=== PATIENT | male | born 1950 | race Caucasian/White ===

== ENCOUNTER → 2016-12-01 | Outpatient (CLI) | payer OTHER, MEDICARE ==
[~2016-12-01] MED LIST: AMLODIPINE BESY10 MG PO; AZITHROMYCIN 2250 MG PO; DIGOXIN250 MCG PO; LASIX 40 MG TAB40 M2 PO; LISINOPRIL-HCT1 EACH PO; POTASSIUM20 PO; PRADAXA150 MG PO; PROBENECID-COL1 EACH PO; TOPROL XL100 MG PO; ceftin PO
--- NOTE | ~2016-12-01 | SLE ---
[facility] [address] [address] POLYSOMNOGRAPHY STUDY Name: DARIN MICHAELS Room #: REG [facility]#: [id number] Admission: 12/01/16 Attend Phys: Ernestine Gonzalez MD Discharge: Date of : 52 Report #: [id number] THIS REPORT FOR: //name// CC: Amadou Davila MD HISTORY: Prior study September 2016. Home study showed an apnea-hypopnea index of 65 events per hour, 42 of those events were central apneas. COMMENTS: CPAP TITRATION: Titrated between 5 and 14 cm water pressure. At 14 cm water pressure, the patient was seen for 53 minutes of which 25 minutes was in REM sleep. Central apnea 1, hypopnea 0, respiratory effort related arousal 2. Apnea hypopnea index 1.1 event per sleep hour, low sat of 91%. IMPRESSION: 1. History of obstructive sleep apnea/hypopnea, G47.33. 2. Central events noted. 3. CPAP improves the patient's apnea-hypopnea index, snoring and desaturation. The patient was not seen in supine REM sleep. PVCs noted. SUGGESTIONS: 1. In addition to specific therapy, the patient should be cautioned regarding driving or operating dangerous machinery unless fully alert. The patient will be cautioned on use of respiratory depressants. 2. Weight loss and TSH may be considered. 3. Oral appliance or appropriate surgery may be considered with appropriate followup. 4. An auto titrating CPAP between 10 and 16 cm water pressure is initially recommended. During our study, a [employer] Simplus full face large mask was used with heated humidity. 5. If signs and symptoms not improve with therapy, further evaluation is recommended. Please do not hesitate to contact me if I may be of further assistance. <ELECTRONICALLY SIGNED> By: Ernestine Gonzalez MD 12/08/16 2232 [id number] 13 Ernestine Gonzalez MD /nt
== END ==
LOC: SLEEPLAB 11:15
DX: G47.33 Obstructive sleep apnea (adult) (pediatric) (principal)

== ENCOUNTER → 2017-02-14 | Outpatient (CLI) | payer OTHER, MEDICARE | LOC: MRI 07:18 | DX: M48.06 Spinal stenosis, lumbar region (principal); M24.28 Disorder of ligament, vertebrae; M54.5 Low back pain ==

== ENCOUNTER 2017-03-23 07:04 | Inpatient (IN) | payer OTHER, MEDICARE ==
[~2017-03-23] VITALS: Ht 185.4 cm; Wt 115.8 kg
--- NOTE | ~2017-03-23 | EKG ---
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
--- NOTE | ~2017-03-23 | EKG ---
[address] [address] ELECTROCARDIOGRAM REPORT Name: SACHA MICHAELSDominic Ferreira Room #: 207-[facility] IN ..#: [id number] Admission: 03/24/17 Attend Phys: Geoffrey Cantu MD Discharge: 03/27/17 Date of : 52 Report #: [id number] THIS REPORT FOR: //name// [facility] Test Date: 2017-03-23 Test Time: 09:09:55 Pat Name: DARIN MICHAELS Department: Room: 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
--- NOTE | ~2017-03-23 | D ---
[facility] [place] [address] [place] [address] DISCHARGE SUMMARY Name: DARIN MICHAELS Room #: 207-P [facility] IN ..#: [id number] Admission: 03/24/17 Attend Phys: Geoffrey Cantu MD Discharge: 03/27/17 Date of : 52 Report #: [id number] THIS REPORT FOR: //name// CC: Amadou Cantu FINAL DIAGNOSES: 1. Congestive heart failure, mixed type. 2. Paroxysmal atrial fibrillation. 3. Mitral regurgitation. 4. Hypertension. 5. Sleep apnea. HOSPITAL COURSE: Please see the original H and P for full details. This is a 66-year-old gentleman with a history of AFib and diastolic heart failure, admitted electively for cardioversion. He was found to have atrial fibrillation with rapid ventricular rates and heart failure symptoms. He did undergo cardioversion. However, the echo revealed a change in the LV systolic function, moderate to severely depressed. It was decided to start the patient on amiodarone and IV diuresis. The rhythm has remained in sinus rhythm. His heart failure symptoms improved with IV diuresis, and he is stable for discharge. The patient is instructed to maintain a low-salt diet. FINAL DISPOSITION: He will continue Pradaxa 150 mg twice a day, Lasix 40 mg daily, and potassium. His new medications include Coreg 6.25 mg twice a day and lisinopril 5 mg daily. He is given a followup appointment with Dr. Cantu. <ELECTRONICALLY SIGNED> By: Edilberto Lima MD 03/28/17 0902 0930 1043 Edilberto Lima MD /nt
--- NOTE | ~2017-03-23 | 2DMMODE ---
[facility] [place] [address] 2 D/M-MODE ECHOCARDIOGRAM Name: DARIN MICHAELS Hanna Room #: 207-P [facility] IN ..#: [id number] Admission: 03/23/17 Attend Phys: Geoffrey Cantu Discharge: Date of : 52 Date of Service: 03/23/17 1159 Report #: [id number] THIS REPORT FOR: //name// APPROVED REPORT Study performed: 03/23/2017 09:24:59 EXAM: Comprehensive 2D, Doppler, and color-flow Echocardiogram Patient Location: Bedside Room #: 207 Blood Pressure: 142/108 mmHg HR: 64 bpm Rhythm: NSR w frequent PAC's Other Information Study Quality: Adequate Technically limited study due to limited mobility and patient on Bipap.. Indications Acute on chronic heart failure, Afib status post cardioversion today, short of breath, edema. Hx: Afib 2D Dimensions RVDd: 52.58 mm LVEF(%): 29.34 (>50%) IVSd: 13.41 (7-11mm) LVOT Diam: 27.09 (18-24mm) LVDd: 55.41 mm PWd: 11.70 (7-11mm) LVDs: 47.70 (25-40mm) Aortic Root: 39.62 mm Dean's LVEF: 29.34 % Volumes Left Atrial Volume (Systole) Single Plane 4CH: 95.14 mL Single Plane 2CH: 156.76 mL LA ESV Index: 54.00 mL/m2 Aortic Valve AoV Peak Papito.: 0.72 m/s AO Peak Gr.: 2.09 mmHg LVOT Max P.00 mmHg LVOT Max V: 0.50 m/s RENITA Vmax: 3.99 cm2 [facility] [place] [address] 2 D/M-MODE ECHOCARDIOGRAM Name: DARIN MICHAELS Hanna Room #: [address] [place] [address] IN ..#: [id number] Admission: 03/23/17 Attend Phys: Geoffrey Cantu Discharge: Date of : 52 Date of Service: 03/23/17 1159 Report #: [id number] Mitral Valve MV Decel. Time: 215.64 ms MV E Max Papito.: 0.69 m/s IVRT: 76.12 ms Pulmonary Valve PV Peak Papito.: 0.39 m/s PV Peak Gr.: 0.61 mmHg Tricuspid Valve TR Peak Papito.: 2.89 m/s RAP Estimate: 15.00 mmHg TR Peak Gr.: 33.37 mmHg RVSP: 48.00 mmHg Left Ventricle The left ventricle is normal size. Mild concentric left ventricular hypertrophy. Left ventricular systolic function is moderate to severely decreased. LVEF is 30-35%. This study is not technically sufficient to allow evaluation of the LV diastolic function due to arrhythmia. Right Ventricle Right ventricle is moderately dilated. Right ventricular systolic function is moderately reduced. Atria Left atrium is severely dilated. Flow was noted through the interatrial septum. Right atrium is severely dilated. Aortic Valve The Aortic valve is sclerotic. Trace aortic regurgitation. There is no aortic valvular stenosis. Mitral Valve The mitral valve is normal in structure. Moderate to severe mitral regurgitation Tricuspid Valve The tricuspid valve is normal in structure. There is moderate tricuspid regurgitation. The right atrial pressure is estimated at 15 mmHg. There is moderate pulmonary hypertension with an estimated PAP of 48mmHg. Pulmonic Valve The pulmonary valve is normal in structure. Trace pulmonic regurgitation. [facility] [address] [place] [address] 2 D/M-MODE ECHOCARDIOGRAM Name: DARIN MICHAELS Room #: 207-P [facility] IN ..#: [id number] Admission: 03/23/17 Attend Phys: Geoffrey Cantu Discharge: Date of : 52 Date of Service: 03/23/17 1159 Report #: [id number] Great Vessels Aortic root is dilated. Ascending aorta is not well visualized. IVC is dilated and collapses <50% with inspiration. Pericardium There is no pericardial effusion. <Conclusion> The left ventricle is normal size. Mild concentric left ventricular hypertrophy. Left ventricular systolic function is moderate to severely decreased. LVEF is 30-35%. Right ventricle is moderately dilated. Right ventricular systolic function is moderately reduced. Left atrium is severely dilated. Right atrium is severely dilated. Flow was noted through the interatrial septum. The Aortic valve is sclerotic. Trace aortic regurgitation. The mitral valve is normal in structure. Moderate to severe mitral regurgitation The tricuspid valve is normal in structure. There is moderate tricuspid regurgitation. The right atrial pressure is estimated at 15 mmHg. There is moderate pulmonary hypertension with an estimated PAP of 48mmHg. Trace pulmonic regurgitation. Aortic root is dilated. IVC is dilated and collapses <50% with inspiration. <ELECTRONICALLY SIGNED> By: Kayode Valiente MD 03/23/17 1159 1159 1159 Kayode Valiente MD /INF
--- NOTE | ~2017-03-23 | H ---
[facility] [place] [address] HISTORY AND PHYSICAL Name: DARIN MICHAELS Room #: 207-P [facility] M..#: [id number] Admission: 03/23/17 Attend Phys: Geoffrey Cantu MD Discharge: Date of : 52 Report #: [id number] THIS REPORT FOR: //name// CC: Amadou Cantu DATE OF SERVICE: 03/23/2017 REASON FOR ADMISSION: AFib with RVR, zjdsg-lf-nlyorrz diastolic heart failure. HISTORY OF PRESENT ILLNESS: The patient is a 66-year-old patient who I follow up for atrial fibrillation for approximately 1 year when he was diagnosed. He presented with AFib with RVR and diastolic heart failure. He underwent a cardioversion and since about a few weeks ago, the patient was doing very well. He then presented to my clinic on March 18 with increased shortness of breath, palpitations and lower extremity swelling. As such, I recommended that he coming in for cardioversion today. Prior to the cardioversion, the patient was complaining of worsening shortness of breath, some PND, orthopnea and worsening lower extremity swelling. His is in agreement that his respiratory status is worsened. He denies any chest pain or chest tightness. REVIEW OF SYSTEMS: GENERAL: No fevers, chills. HEENT: No blurred vision or sore throat. CARDIOVASCULAR: As above. PULMONARY: No productive cough. GASTROINTESTINAL: No nausea, vomiting. GENITOURINARY: No dysuria. MUSCULOSKELETAL: No myalgias, arthralgias. ENDOCRINE: No heat or cold intolerance. NEUROLOGIC: No headaches or focal weakness. PAST MEDICAL HISTORY: 1. Atrial fibrillation diagnosed in May 2016. 2. Diastolic heart failure secondary to atrial fibrillation. 3. Echocardiogram on 06/07/2016 demonstrating an EF of 45-50%, severely enlarged left atrium with no significant valvular abnormalities. 4. Hypertension. 5. Gout. 6. Obstructive sleep apnea. SOCIAL HISTORY: He is not a smoker. FAMILY HISTORY: Noncontributory. ALLERGIES: He has no known drug allergies. [facility] [address] [place] [address] HISTORY AND PHYSICAL Name: DARIN MICHAELS Room #: 207-P [facility]#: [id number] Admission: 03/23/17 Attend Phys: Geoffrey Cantu MD Discharge: Date of : 52 Report #: [id number] PRIOR SURGERIES: Include appendectomy, total knee replacement, thyroidectomy. PHYSICAL EXAMINATION: VITAL SIGNS: Today, temperature is 36.4, pulse 108, respiration 18, blood pressure 142/108 and oxygen sats are anywhere from 90-96%. GENERAL: He is a slightly dyspneic. HEENT: Oropharynx is clear. Sclerae anicteric. His neck was supple with no thyromegaly, carotid bruits. HEART: Irregularly irregular, tachycardic. No murmurs noted. He does have elevated jugular venous pressure with positive hepatojugular reflux. LUNGS: Clear bilaterally. ABDOMEN: Soft, nontender, nondistended with no hepatosplenomegaly. EXTREMITIES: There was 3+ edema on the right lower extremity and 2+ edema in the left lower extremity, which he reports he typically gets more swelling in the right leg. NEUROLOGIC: His cranial nerves 2-12 are intact. LABORATORY DATA: White count 10.2, hemoglobin 15.3, platelets are 182. His sodium 144, potassium 3.8, chloride 109, BUN 30, creatinine 1.4, glucose 140, total bili 1.3. HOME MEDICATIONS: Include: 1. Colchicine/probenecid. 2. Pradaxa 150 b.i.d. 3. Lasix 40 mg a day. 4. Toprol 100 mg a day. 5. Potassium chloride 20 mEq a day. ASSESSMENT: 1. Atrial fibrillation with rapid ventricular response. 2. Dedxo-ks-mfrjrqm diastolic heart failure. 3. Hypertension, uncontrolled. 4. Gout. PLAN: The patient is a 66-year-old with known AFib and diastolic heart failure, who presents with vcsbi-dx-mhqmhlp diastolic heart failure and AFib with RVR. I did proceed with a cardioversion with successful spiritism of sinus rhythm. I spoke with the patient and his prior to the procedure and recommended that we admit him to the hospital for IV diuresis. I did anticipate that he will be here for at least 3 days and while he is here, we will start him on sotalol [address] [address] HISTORY AND PHYSICAL Name: DARIN MICHAELS Room #: 207-P [facility] [place] Golden#: [id number] Admission: 03/23/17 Attend Phys: Geoffrey Cantu MD Discharge: Date of : 52 Report #: [id number] b.i.d. to prevent further episodes of atrial fibrillation. We will obtain an echocardiogram and some additional cardiac laboratories. By: 0850 1017 Geoffrey Cantu MD /nadia
--- NOTE | ~2017-03-23 | P ---
[facility] [place] [address] PROCEDURE REPORT Name: DARIN MICHAELS Room #: 207-P [facility] M.RJoann#: [id number] Admission: 03/23/17 Attend Phys: Geoffrey Cantu MD Discharge: Date of : 52 Report #: [id number] THIS REPORT FOR: //name// CC: Amadou Cantu PREOPERATIVE DIAGNOSIS: Atrial fibrillation. POSTOPERATIVE DIAGNOSIS: Atrial fibrillation and acute on chronic diastolic heart failure. The patient is a 66-year-old with recurrent AFib, here for cardioversion. He was prepped in standard fashion. He was n.p.o. prior to the procedure. He underwent informed consent. He was sedated by the anesthesiology service. Once sedated, he underwent a synchronized 200 joule shock with episcopalian of sinus rhythm. CONCLUSIONS: Successful DC cardioversion with episcopalian of sinus rhythm. PLAN: The patient appears to be in acute on chronic diastolic heart failure. We will admit for diuresis and optimization of his meds. By: 0856 1125 Geoffrey Cantu MD /nt
--- NOTE | ~2017-03-23 | EKG ---
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
[2017-03-23 07:26] VITALS: BP 142/108
[2017-03-23 07:34] LABS: HEMATOCRIT 46.1 % (42.0-52.0); HEMOGLOBIN 15.3 gm/dL (14.0-18.0); MCH 29.8 pg (26.0-34.0); MCHC 33.2 g/dL (28.0-37.0); MCV 89.6 fL (80.0-100.0); RBC 5.15 mil/uL (4.50-6.00); RDW 14.2 % (10.5-14.5); WBC 10.2 thou/uL (4.0-11.0)
[2017-03-23 07:44] LABS: CALCIUM 8.8 mg/dL (8.5-10.1); CREATININE 1.4 mg/dL (0.7-1.3); POTASSIUM 3.8 mmol/L (3.5-5.1)
[2017-03-23 07:49] LABS: ALBUMIN 3.5 g/dL (3.4-5.0); TOTAL BILIRUBIN 1.3 mg/dL (<0.1-1.0)
[2017-03-23 07:55] LABS: APTT 34.4 Seconds (24.5-32.8); INR 1.4; PROTIME 14.2 Seconds (9.3-11.4)
[2017-03-23 09:19] LABS: NT-PRO BRAIN NAT PEPTIDE 5777 pg/mL (<300); TROPONIN-I < 0.04 ng/mL (<0.04-0.07)
[2017-03-23 09:25] VITALS: BP 125/92
[2017-03-23 11:10] VITALS: BP 125/92
[2017-03-23 16:30] VITALS: BP 130/97
[2017-03-23 20:25] VITALS: BP 138/93
[2017-03-24 05:00] VITALS: BP 157/91
[2017-03-24 07:51] VITALS: BP 143/105
[2017-03-24 09:40] LABS: HEMATOCRIT 46.1 % (42.0-52.0); HEMOGLOBIN 15.4 gm/dL (14.0-18.0); MCH 29.9 pg (26.0-34.0); MCHC 33.4 g/dL (28.0-37.0); MCV 89.6 fL (80.0-100.0); RBC 5.15 mil/uL (4.50-6.00); RDW 14.3 % (10.5-14.5); WBC 8.9 thou/uL (4.0-11.0)
[2017-03-24 09:51] LABS: CALCIUM 8.8 mg/dL (8.5-10.1); CREATININE 1.4 mg/dL (0.7-1.3); POTASSIUM 3.4 mmol/L (3.5-5.1)
[2017-03-24 12:26] VITALS: BP 134/98
[2017-03-24 19:45] VITALS: BP 98/54
[2017-03-24 19:55] VITALS: BP 137/77
[2017-03-25] VITALS (7 sets, daily range): BP systolic 108–123; BP diastolic 62–78
[2017-03-25 09:44] LABS: CREATININE 1.4 mg/dL (0.7-1.3); POTASSIUM 3.6 mmol/L (3.5-5.1)
[2017-03-26 03:50] LABS: CALCIUM 8.6 mg/dL (8.5-10.1); CREATININE 1.3 mg/dL (0.7-1.3); POTASSIUM 3.4 mmol/L (3.5-5.1)
[2017-03-26 04:38] VITALS: BP 124/83
[2017-03-26 07:50] VITALS: BP 124/85
[2017-03-26 13:30] VITALS: BP 115/80
[2017-03-26 17:00] VITALS: BP 147/89
[2017-03-26 19:51] VITALS: BP 130/67
[2017-03-27 03:10] LABS: CALCIUM 8.4 mg/dL (8.5-10.1); CREATININE 1.4 mg/dL (0.7-1.3); POTASSIUM 3.7 mmol/L (3.5-5.1)
[2017-03-27 05:49] VITALS: BP 147/65
[2017-03-27 07:15] VITALS: BP 134/88
[2017-03-27 08:06] VITALS: BP 134/88
[2017-03-27 09:10] VITALS: BP 134/88
[2017-03-27] MEDS ORDERED: CARVEDILOL6.25 MG PO (09:19)
[2017-03-27] MEDS ORDERED: PACERONE 200 M200 M1 PO (09:19)
[2017-03-27] MEDS ORDERED: LISINOPRIL5 MG PO (09:20)
== END 2017-03-27 10:06 | disposition home or self-care (01) | DRG 308 ==
LOC: CATH 07:04 → 2N 09:24
PROVIDERS: Internal Medicine Cardiovascular Disease; Nurse Practitioner Gerontology
PROC: 5A2204Z Restoration of Cardiac Rhythm, Single (ICD-10-PCS; principal; 2017-03-23)
DX: I48.0 Paroxysmal atrial fibrillation (principal); I50.43 Acute on chronic combined systolic (congestive) and diastolic (congestive) heart failure; I08.1 Rheumatic disorders of both mitral and tricuspid valves; I11.0 Hypertensive heart disease with heart failure; M10.9 Gout, unspecified; G47.33 Obstructive sleep apnea (adult) (pediatric); Z96.659 Presence of unspecified artificial knee joint; E89.0 Postprocedural hypothyroidism; Z90.49 Acquired absence of other specified parts of digestive tract; Z79.899 Other long term (current) drug therapy
CPT/HCPCS: 10081; 62110

== ENCOUNTER → 2017-05-26 | Outpatient (CLI) | payer OTHER, MEDICARE ==
[~2017-05-26] MED LIST changes: +CARVEDILOL6.25 MG PO; +LISINOPRIL5 MG PO; +PACERONE 200 M200 M1 PO
[2017-05-26 08:26] LABS: CREATININE 1.4 mg/dL (0.7-1.3)
== END ==
LOC: CAT 07:51
PROVIDERS: Internal Medicine
DX: I71.9 Aortic aneurysm of unspecified site, without rupture (principal); J98.11 Atelectasis

== ENCOUNTER → 2020-07-23 | Outpatient (CLI) | payer OTHER, MEDICARE | LOC: SJCVC 09:11 | PROVIDERS: ATTEND Internal Medicine Cardiovascular Disease | DX: I25.10 Atherosclerotic heart disease of native coronary artery without angina pectoris (principal); I48.91 Unspecified atrial fibrillation; I10 Essential (primary) hypertension; Z79.899 Other long term (current) drug therapy ==

== ENCOUNTER → 2020-07-31 | Outpatient (CLI) | payer OTHER, MEDICARE ==
[~2020-07-31] MED LIST changes: +LIPITOR 20 MG T20 M1 PO; +PREDNISONE 20 M20 MG PO; +PRESERVISION A1 EACH PO; +PRINIVIL10 MG PO; +THERA M PLUS T1 EAC2 PO
== END ==
LOC: SJCVC 16:45
PROVIDERS: ATTEND Internal Medicine Cardiovascular Disease
DX: I25.10 Atherosclerotic heart disease of native coronary artery without angina pectoris (principal); R94.31 Abnormal electrocardiogram [ECG] [EKG]; E07.9 Disorder of thyroid, unspecified; I48.91 Unspecified atrial fibrillation; G47.33 Obstructive sleep apnea (adult) (pediatric); I11.0 Hypertensive heart disease with heart failure; I50.9 Heart failure, unspecified; M10.9 Gout, unspecified; Z79.899 Other long term (current) drug therapy; Z90.49 Acquired absence of other specified parts of digestive tract; Z90.09 Acquired absence of other part of head and neck

== ENCOUNTER → 2020-07-31 | Outpatient (CLI) | payer OTHER, MEDICARE ==
[~2020-07-31] MED LIST changes: -LIPITOR 20 MG T20 M1 PO; -PREDNISONE 20 M20 MG PO; -PRESERVISION A1 EACH PO; -PRINIVIL10 MG PO; -THERA M PLUS T1 EAC2 PO
== END ==
LOC: LAB 14:46
PROVIDERS: ATTEND Internal Medicine Cardiovascular Disease
DX: Z01.812 Encounter for preprocedural laboratory examination (principal); Z20.828 Contact with and (suspected) exposure to other viral communicable diseases

== ENCOUNTER → 2020-08-05 | Outpatient (CLI) | payer OTHER, MEDICARE ==
[~2020-08-05] VITALS: Ht 185.4 cm; Wt 113.9 kg
[~2020-08-05] MED LIST changes: +LIPITOR 20 MG T20 M1 PO; +PREDNISONE 20 M20 MG PO; +PRESERVISION A1 EACH PO; +PRINIVIL10 MG PO; +THERA M PLUS T1 EAC2 PO
[2020-08-05 07:33] VITALS: BP 160/104
[2020-08-05 07:37] LABS: ABSOLUTE NEUTROPHILS 7.2 thou/uL (1.4-8.2); BASOPHILS 0.3 % (0.0-2.0); EOSINOPHILS 0.5 % (0.0-3.0); HEMATOCRIT 43.3 % (42.0-52.0); HEMOGLOBIN 14.3 gm/dL (14.0-18.0); LYMPHOCYTES 20.6 % (24.0-44.0); MCH 30.9 pg (26.0-34.0); MCHC 33.1 g/dL (28.0-37.0); MCV 93.2 fL (80.0-100.0); PLATELET COUNT 161 thou/uL (150-400); POLYS 69.6 % (36.0-66.0); RBC 4.65 mil/uL (4.50-6.00); RDW 13.9 % (10.5-14.5); WBC 10.4 thou/uL (4.0-11.0)
[2020-08-05 07:47] LABS: APTT 34.7 Seconds (24.5-32.8); INR 1.2; PROTIME 12.7 Seconds (9.3-11.4)
[2020-08-05 08:20] LABS: CALCIUM 8.8 mg/dL (8.5-10.1); CREATININE 1.2 mg/dL (0.7-1.3); POTASSIUM 3.6 mmol/L (3.5-5.1)
[2020-08-05 08:23] LABS: ALBUMIN 3.3 g/dL (3.4-5.0); TOTAL PROTEIN 7.2 g/dL (6.4-8.2)
== END | disposition home or self-care (01) ==
LOC: CATH 06:48
PROVIDERS: ATTEND Internal Medicine Cardiovascular Disease
DX: I48.91 Unspecified atrial fibrillation (principal); R00.2 Palpitations; I11.0 Hypertensive heart disease with heart failure; I50.9 Heart failure, unspecified; I42.9 Cardiomyopathy, unspecified; M10.9 Gout, unspecified; G47.30 Sleep apnea, unspecified; Z98.890 Other specified postprocedural states; Z90.49 Acquired absence of other specified parts of digestive tract; Z96.642 Presence of left artificial hip joint; Z79.01 Long term (current) use of anticoagulants; Z79.899 Other long term (current) drug therapy; Z82.49 Family history of ischemic heart disease and other diseases of the circulatory system
CPT/HCPCS: 62110; 62900

== ENCOUNTER → 2020-08-15 | Outpatient (CLI) | payer OTHER, MEDICARE ==
[~2020-08-15] MED LIST changes: +TAPAZOLE5 MG PO
== END ==
LOC: SJCVCIMAG 07:31
PROVIDERS: ATTEND Internal Medicine Cardiovascular Disease
DX: I45.10 Unspecified right bundle-branch block (principal); I48.91 Unspecified atrial fibrillation; I25.10 Atherosclerotic heart disease of native coronary artery without angina pectoris; I10 Essential (primary) hypertension; Z79.899 Other long term (current) drug therapy

== ENCOUNTER → 2020-08-19 | Outpatient (CLI) | payer OTHER, MEDICARE ==
[~2020-08-19] MED LIST changes: -TAPAZOLE5 MG PO
== END ==
LOC: SJCVCIMAG 07:21
PROVIDERS: ATTEND Internal Medicine Cardiovascular Disease
DX: E05.90 Thyrotoxicosis, unspecified without thyrotoxic crisis or storm (principal); Z90.89 Acquired absence of other organs

== ENCOUNTER → 2020-08-25 | Outpatient (CLI) | payer OTHER, MEDICARE ==
[~2020-08-25] VITALS: Ht 185.4 cm; Wt 113.9 kg
[~2020-08-25] MED LIST changes: +TAPAZOLE5 MG PO
[2020-08-25 07:19] VITALS: BP 135/94
--- NOTE | 2020-08-25 07:52 | EKG ---
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 : 1950 Requested By: Virgil Morrell Order Number: [id number] MD: Narendra Ambriz Measurements Intervals [place] Rate: 114 P: ID: QRS: 79 QRSD: 99 T: 242 QT: 451 QTc: 622 Interpretive Statements Atrial fibrillation Abnormal R-wave progression, late transition Nonspecific T wave abnormality Prolonged QT interval Baseline wander in lead(s) V2 Compared to ECG 03/25/2017 07:02:43 T wave abnormality is less pronounced Electronically Signed On 08-25-2020 7:52:31 CDT by Narendra Ambriz [email or web address] <ELECTRONICALLY SIGNED> By: Narendra Ambriz MD, FACC 08/25/20 0752 4 Narendra Ambriz MD, [facility] /EPI
[2020-08-25 07:56] LABS: HEMATOCRIT 40.3 % (42.0-52.0); HEMOGLOBIN 13.3 gm/dL (14.0-18.0); MCH 30.7 pg (26.0-34.0); MCV 93.1 fL (80.0-100.0); RBC 4.33 mil/uL (4.50-6.00); RDW 14.2 % (10.5-14.5); WBC 7.8 thou/uL (4.0-11.0)
[2020-08-25 08:05] LABS: CALCIUM 7.9 mg/dL (8.5-10.1); CREATININE 1.1 mg/dL (0.7-1.3); POTASSIUM 3.1 mmol/L (3.5-5.1)
--- NOTE | 2020-08-25 17:48 | CATHLAB ---
[facility] [place] [address] INVASIVE PROCEDURE REPORT Name: SANTIAGO MICHAELS Room #: REG [place] Golden#: [id number] Admission: 08/25/20 Attend Phys: Virgil Morrell MD, Discharge: Date of : 52 Report #: [id number] THIS REPORT FOR: cc: Amadou Jamil MD, FAAFP FACE Amadou Jamil MD, FAAFP FACE Virgil Morrell MD [facility] ~ APPROVED REPORT Study performed: 08/25/2020 07:39:09 Patient Details Patient Status: Out-Patient Room #: The patient is a 69 year-old male Event Personnel Virgil Morrell Endo Tech, Isidra Velez RN RN, [place] Milton RTR Krystian Day Alison RT(R)() Monitor Procedures Performed Art Access - R femoral artery* Left Heart Cath w/or w/o Coronaries [id number] [facility] Hemostasis w/ Mynx 34121 Initial Mod Sed Same Phys/QHP Gr5y 029036 98398 Mod Sed Same Phys/QHP Ea 169802 Procedure Narrative The Right Groin^ was infiltrated with 1% Lidocaine subcutaneous anesthesia. A PINNACLE 6FR Sheath #[id number] sheath was inserted into the RFA^. Coronary angiography was performed using coronary diagnostic catheters. The right coronary system was accessed and visualized with a JR4 catheter. The left coronary system was accessed and visualized with a 6FR JL 6.0 #[id number] catheter. The left ventricle was accessed and visualized with a PIGTAIL catheter. The patient tolerated the procedure well and there were no complications associated with the procedure. There was no hematoma. Intraoperative Conscious Sedation Fentanyl 50 mcg Versed 1 mg Fluoro Time: 4.50 minutes Dose: DAP 56568.40 cGycm2 Contrast Type and Amount: Omnipaque 149 ml Hemodynamics The aortic pressure is 138/95 mmHg with a mean of 115 mmHg. The left ventricular pressure is 146/11 mmHg with a mean of mmHg. The left [facility] [address] [place] [address] INVASIVE PROCEDURE REPORT Name: SANTIAGO MICHAELS [id number] Admission: 08/25/20 Attend Phys: Virgil Morrell, Discharge: Date of : 52 Report #: [id number] ventricular end diastolic pressure is 34 mmHg. Conclusion #1. Mildly dilated left ventricle with moderate global hypokinesis worse in the inferior wall EF 3035% range #2 significant abdominal aortic tortuosity but no definite aneurysm. Renal arteries and iliac system appear to be patent. #3 mild ostial left main lesion of 30% giving rise to LAD and circumflex. #4 moderate LAD a calcification and ectasia but no occlusive disease 4050% mid vessel diffusely diseased around the apex. #5 circumflex OM is moderate in distribution significant proximal calcification first OM branch has a 60 to 70% proximal lesion in the circumflex also 60 to 70% basically bifurcation. Although this does not appear to have progressed since the films of 2017. #6 large dominant ectatic right coronary artery with heavily calcified. Moderate disease and then the proximal PDA at the bifurcation 80% eccentric lesion. Again has not progressed since the exam of 2017 and may represent the infarcted segment. Recommendations and plan: Patient still in A. fib with rapid ventricular response. The nuclear stress test suggested anterior wall ischemia but LAD only mild to moderately disease. With an infarcted inferior lateral segment may be consistent with the PDA. These vessels are significantly tortuous and calcified. Would be difficult to intervene on. But showing no progression since 2017. Have discussed with Dr. Keyes and all of electrophysiology will attempt to ablate the atrial fibrillation and expect improvement in LV function and symptoms. Will follow-up considering intervention if we make no improvement. <ELECTRONICALLY SIGNED> By: Virgil Morrell MD, FACC 08/25/201747 47 47 Virgil Morrell MD, FACC /INF
== END | disposition home or self-care (01) ==
LOC: CATH 06:31
PROVIDERS: ATTEND Internal Medicine Cardiovascular Disease
DX: I25.10 Atherosclerotic heart disease of native coronary artery without angina pectoris (principal); I11.0 Hypertensive heart disease with heart failure; I50.9 Heart failure, unspecified; E78.5 Hyperlipidemia, unspecified; E66.9 Obesity, unspecified; I48.91 Unspecified atrial fibrillation; M10.9 Gout, unspecified; G47.30 Sleep apnea, unspecified; Z90.49 Acquired absence of other specified parts of digestive tract; Z98.890 Other specified postprocedural states; Z79.899 Other long term (current) drug therapy; Z79.01 Long term (current) use of anticoagulants

== ENCOUNTER → 2020-08-29 | Outpatient (CLI) | payer OTHER, MEDICARE | LOC: SJCVC 14:43 | PROVIDERS: ATTEND Internal Medicine Cardiovascular Disease | DX: I48.91 Unspecified atrial fibrillation (principal); I25.10 Atherosclerotic heart disease of native coronary artery without angina pectoris; I11.0 Hypertensive heart disease with heart failure; I50.30 Unspecified diastolic (congestive) heart failure; M10.9 Gout, unspecified; Z79.899 Other long term (current) drug therapy ==

== ENCOUNTER → 2020-09-02 | Outpatient (CLI) | payer OTHER, MEDICARE | LOC: SJCVC 13:59 | PROVIDERS: ATTEND Internal Medicine Cardiovascular Disease | DX: R94.31 Abnormal electrocardiogram [ECG] [EKG] (principal); I48.91 Unspecified atrial fibrillation; I50.33 Acute on chronic diastolic (congestive) heart failure; I34.0 Nonrheumatic mitral (valve) insufficiency; I25.10 Atherosclerotic heart disease of native coronary artery without angina pectoris; G47.33 Obstructive sleep apnea (adult) (pediatric) ==

== ENCOUNTER → 2020-09-15 | Outpatient (CLI) | payer OTHER, MEDICARE ==
[2020-09-15 09:52] LABS: ABSOLUTE NEUTROPHILS 4.1 thou/uL (1.4-8.2); BASOPHILS 0.8 % (0.0-2.0); EOSINOPHILS 2.9 % (0.0-3.0); HEMATOCRIT 44.6 % (42.0-52.0); HEMOGLOBIN 14.7 gm/dL (14.0-18.0); LYMPHOCYTES 28.7 % (24.0-44.0); MCH 30.3 pg (26.0-34.0); MCV 91.7 fL (80.0-100.0); MONOCYTES 10.9 % (1.0-8.0); PLATELET COUNT 191 thou/uL (150-400); POLYS 56.7 % (36.0-66.0); RBC 4.86 mil/uL (4.50-6.00); RDW 13.2 % (10.5-14.5); WBC 7.3 thou/uL (4.0-11.0)
[2020-09-15 10:06] LABS: ALBUMIN 3.6 g/dL (3.4-5.0); CALCIUM 9.5 mg/dL (8.5-10.1); CREATININE 1.6 mg/dL (0.7-1.3); POTASSIUM 4.6 mmol/L (3.5-5.1); TOTAL BILIRUBIN 0.7 mg/dL (0.2-1.0); TOTAL PROTEIN 7.3 g/dL (6.4-8.2)
== END ==
LOC: CAT 09:14
PROVIDERS: ATTEND Internal Medicine Cardiovascular Disease
DX: I48.91 Unspecified atrial fibrillation (principal); I51.7 Cardiomegaly; K80.20 Calculus of gallbladder without cholecystitis without obstruction; I71.2 Thoracic aortic aneurysm, without rupture

== ENCOUNTER → 2020-09-15 | Outpatient (CLI) | payer OTHER, MEDICARE | LOC: LAB 10:58 | PROVIDERS: ATTEND Internal Medicine Cardiovascular Disease | DX: Z20.828 Contact with and (suspected) exposure to other viral communicable diseases (principal); Z01.812 Encounter for preprocedural laboratory examination ==

== ENCOUNTER → 2020-09-17 | Outpatient (CLI) | payer OTHER, MEDICARE ==
[~2020-09-17] VITALS: Ht 185.4 cm; Wt 109.0 kg
[~2020-09-17] MED LIST changes: +CARVEDILOL12.5 MG PO; +DEMADEX20 MG PO; +PREDNISONE 10 M10 M1 PO
[2020-09-17 07:13] VITALS: BP 111/72
--- NOTE | 2020-09-17 08:56 | TEE ---
[facility] [place] [address] TRANSESOPHAGEAL ECHOCARDIOGRAM Name: SANTIAGO MICHAELS Room #: REG HANNAH Golden#: [id number] Admission: 09/17/20 Attend Phys: Narendra Ambriz MD, Discharge: Date of : 52 Report #: [id number] THIS REPORT FOR: cc: Amadou Jamil MD, FAAFP, FACEP, Douglas MD FAA Narendra Méndez MD [facility] ~ APPROVED REPORT Study performed: 09/17/2020 07:42:21 EXAM: Transesophageal Echocardiogram Patient Location: Out-Patient Status: routine BSA: 2.30 HR: 93 bpm BP: 137/91 mmHg Rhythm: Atrial Fibrillation Other Information Study Quality: Good Indications Atrial fibrillation-pre ablation. Hx:Afib with carioversion 08/03, CAD. Procedure After obtaining informed consent, patient underwent transesophageal echo in the [employer]. Type of Sedation : Conscious Sedation Sedation was administered by Deann Bal RN. Sedation was achieved intravenously with: Versed (3) Fentanyl (50) Transesophageal probe was inserted and advanced into esophagus without difficulty by Narendra Ambriz MD. Echo enhancement indication: R/O Septal defect. Echo enhancement agent administered: Agitated Saline The KEVIN was performed without complications. Throughout the procedure, the blood pressure, pulse oximetry, cardiac rhythm, and rate were monitored. The patient tolerated the procedure without adverse effects. Recovery from conscious sedation was uneventful and vital signs were stable. Left Ventricle [facility] [address] [place] [address] TRANSESOPHAGEAL ECHOCARDIOGRAM Name: SANTIAGO MICHAELS Room #: REG [facility].#: [id number] Admission: 09/17/20 Attend Phys: Narendra Ambriz, Discharge: Date of : 52 Report #: [id number] Left ventricle is mildly dilated. There is normal LV segmental wall motion. There is normal left ventricular wall thickness. Left ventricular systolic function is low normal. LVEF is 50%. Right Ventricle The right ventricle is normal size. The right ventricular systolic function is normal. Atria Left atrium is severely dilated. No thrombus is visualized in the left atrium or appendage. No shunting noted with contrast bubble injection. The right atrium size is normal. Aortic Valve The aortic valve is trileaflet, minimally sclerotic Mild, central aortic regurgitation. There is no aortic valvular stenosis. Mitral Valve The mitral valve is normal in structure. Moderate mitral regurgitation. Tricuspid Valve The tricuspid valve is normal in structure. Trace tricuspid regurgitation. Pulmonic Valve The pulmonary valve is normal in structure. Trace pulmonic regurgitation. Great Vessels The aortic root is normal in size. Atherosclerotic calcific plaquing is present in the descending aorta. IVC is normal in size and collapses >50% with inspiration. Pericardium There is no pericardial effusion. <Conclusion> Left ventricular systolic function is low normal. LVEF is 50%. Left atrium is severely dilated. No thrombus in the left atrium or appendage. No shunting noted with contrast bubble injection. The aortic valve is trileaflet, minimally sclerotic. Mild, central aortic regurgitation, no stenosis. The mitral valve is normal in structure. Moderate mitral [facility] [address] [place] [address] TRANSESOPHAGEAL ECHOCARDIOGRAM Name: SANTIAGO MICHAELS Room #: REG [facility]#: [id number] Admission: 09/17/20 Attend Phys: Narendra Ambriz, Discharge: Date of : 52 Report #: [id number] regurgitation. Atherosclerotic calcific plaquing is present in the distal aorta arch. There is no pericardial effusion. <ELECTRONICALLY SIGNED> By: Narendra Ambriz MD, FACC 09/17/20854 4 4 Narendra Ambriz MD, FACC /INF
== END | disposition home or self-care (01) ==
LOC: CATH 06:33
PROVIDERS: ATTEND Internal Medicine
DX: I48.91 Unspecified atrial fibrillation (principal); I08.3 Combined rheumatic disorders of mitral, aortic and tricuspid valves; I70.0 Atherosclerosis of aorta; I11.0 Hypertensive heart disease with heart failure; I25.10 Atherosclerotic heart disease of native coronary artery without angina pectoris; E78.5 Hyperlipidemia, unspecified; I50.9 Heart failure, unspecified; G47.30 Sleep apnea, unspecified; M10.9 Gout, unspecified; Z98.890 Other specified postprocedural states; Z79.899 Other long term (current) drug therapy; Z96.643 Presence of artificial hip joint, bilateral; Z82.49 Family history of ischemic heart disease and other diseases of the circulatory system

== ENCOUNTER 2020-09-19 06:31 | Outpatient (CLI) | payer OTHER, MEDICARE ==
[~2020-09-19] VITALS: Ht 185.4 cm; Wt 110.2 kg
[2020-09-19] VITALS (11 sets, daily range): BP systolic 113–1129; BP diastolic 68–91
[~2020-09-19 06:31] MED LIST changes: -DEMADEX20 MG PO
[2020-09-19 07:31] LABS: BASOPHILS 0.3 % (0.0-2.0); EOSINOPHILS 3.5 % (0.0-3.0); HEMATOCRIT 42.7 % (42.0-52.0); HEMOGLOBIN 14.1 gm/dL (14.0-18.0); MCHC 33.1 g/dL (28.0-37.0); MCV 90.9 fL (80.0-100.0); MONOCYTES 10.4 % (1.0-8.0); PLATELET COUNT 166 thou/uL (150-400); POLYS 55.8 % (36.0-66.0); RBC 4.69 mil/uL (4.50-6.00); RDW 12.9 % (10.5-14.5); WBC 7.1 thou/uL (4.0-11.0)
[2020-09-19 07:44] LABS: CALCIUM 8.5 mg/dL (8.5-10.1); CREATININE 1.5 mg/dL (0.7-1.3); POTASSIUM 3.2 mmol/L (3.5-5.1)
[2020-09-19 07:46] LABS: INR 1.2; PROTIME 11.9 Seconds (9.3-11.4)
[2020-09-19 07:50] LABS: ALBUMIN 3.3 g/dL (3.4-5.0); TOTAL BILIRUBIN 1.1 mg/dL (0.2-1.0); TOTAL PROTEIN 6.9 g/dL (6.4-8.2)
[2020-09-19] MEDS ORDERED: DEMADEX20 MG PO (16:49)
--- NOTE | 2020-09-19 20:17 | NUR ---
PT. ARRIVED AT FLOOR CLOSE TO 1300; R. GROIN INTANTC; NO HEMATOMA; C/D/I; VS WNL; SA ON THE MONITOR; PT. AOX4; NO C/O PAIN; EDUCATED ABOUT MANTAINING RLE STRAIGH & BED REST; [facility]; EDUCATED ABOUT HOLDING PRESSURE IF COUGHING OR LAUGHING; [facility]; SCHEDULED MEDICATION GIVEN; REQUESTED TO HAVE A LUNCH BOX; TOLERATED WELL; EDUCATED ABOUT FLUID INTAKE & RESTRICTIONS; [facility]; AT 1530 R. GROIN DRESSING CHANGED PER PROTOCOL; MINIMAL BLEEDING; THROUGH THE AFTERNOON NO HEMATOMA; OFF OF BED REST AT 1730; BRIONES D/C AT 1750; EDUCATED ABOUT USING URINAL; [facility]; ADMISSION PERFORMED; ASSESSMENT CHARGED; FOLLOWING POC; PASSED ON REPORT;
[2020-09-20] VITALS: BP 103/61
--- NOTE | 2020-09-20 04:35 | NUR ---
CARE ASSUMED 1900. PT ALERT AND ORIENTED S/P AFIB ABLATION. VTIALS STABLE. DENIES CHEST PAIN NAUSEA OR VOMITING. RIGHT GROIN SITE CLEAN DRY AND INTACT. NO HEMATOMA. PT HAS BEEN SR/SA WITH PACs & PVCs. PT WOULD LIKE TO DC THIS AM IF POSSIBLE. WILL CONTINUE TO MONITOR AND FOLLOW POC.
[2020-09-20 04:50] VITALS: BP 135/85
[2020-09-20 05:10] LABS: CALCIUM 8.7 mg/dL (8.5-10.1); CREATININE 1.5 mg/dL (0.7-1.3); POTASSIUM 4.1 mmol/L (3.5-5.1)
[2020-09-20 10:04] VITALS: BP 135/85
--- NOTE | 2020-09-20 11:14 | NUR ---
ASSESSMENT CHARTED - MEDS PER MAR - NO CO'S OF PAIN OR NAUSEA. LUCINA DIET AND FLUIDS. GROIN SITE C/D/I. PT UP AD SURESH ON THE UNIT. HOME THIS AM - INSTRUCTION RE HOME MEDS/ CARE AND FOLLOW UP GIVEN TO PATIENT AND SPOUSE- STATED UNDERSTANDING OF INSTRUCTION GIVEN. PT LEFT UNIT VIA WHEELCHAIR - HOME VIA PVT VEHICLE ACOMMPANIED BY SPOUSE - NO CO'S AT TIME OF D/C.
--- NOTE | 2020-09-22 11:51 | P ---
[facility] [place] [address] PROCEDURE REPORT Name: SANTIAGO MICHAELS Room #: DEP HANNAH [place]#: [id number] Admission: 09/19/20 Attend Phys: Geoffrey Cantu MD Discharge: 09/20/20 Date of : 52 Report #: [id number] THIS REPORT FOR: cc: Amadou Jamil MD, FAAFP, FACEP, Douglas MD FAAFP FACEP Couchonnal,Geoffrey Kaba MD ~ CC: Amadou Cantu DATE OF SERVICE: 09/19/2020 PREOPERATIVE DIAGNOSIS: Atrial fibrillation. POSTOPERATIVE DIAGNOSIS: Atrial fibrillation. HISTORY: The patient is a 69-year-old with history of atrial fibrillation who has failed amiodarone therapy and is here for ablation. PROCEDURES PERFORMED: 1. Atrial fibrillation ablation, CPT code 34694. 2. 3D mapping -- 96268. 3. Intracardiac echo, CPT code 71887. 4. Focal ablation, CPT code 05481. ANESTHESIA: The patient underwent general anesthesia with no anesthesia related complications. DESCRIPTION OF PROCEDURE: The patient underwent informed consent. We discussed the details of the procedure including the risks, which include but not limited to bleeding, vascular damage, stroke, ME as well as cardiac perforation. He understood these risks and is willing to proceed. The patient was brought to EP laboratory in a fasting and sedated state, prepped and draped in a sterile fashion. I obtained access to the right femoral vein x 3, placing 8, 9 and 7-Amharic short sheath using the modified Seldinger technique. Next, under fluoroscopy, decapolar catheter was placed easily in the coronary sinus and ICE catheter was placed in the right atrium. Using intracardiac ultrasound, I created a 3D geometry of the left atrium with evidence of two left and two right pulmonary veins and a large left atrium. This was merged with the cardiac CT scan and then the patient was systemically heparinized and a transseptal was performed using an SL1 sheath and a [place] needle. This was straightforward and then I exchanged for the cryo sheath and placed a Lasso catheter in the left atrium. At baseline, the patient was in atrial fibrillation with a controlled ventricular response. Next, I started by isolating the left superior pulmonary vein and performed a total of 4 freezes in this vein, but was not able to achieve isolation, but it did get delayed. I [facility] [address] [place] [address] PROCEDURE REPORT Name: SANTIAGO MICHAELS Room #: DEP HANNAH Golden#: [id number] Admission: 09/19/20 Attend Phys: Geoffrey Cantu MD Discharge: 09/20/20 Date of : 52 Report #: [id number] then turned my attention to the left inferior pulmonary vein and performed two 4-minute freezes. Again, there was delay in the vein, but no isolation. I then went to the right superior pulmonary vein and I performed two 4-minute freezes, which resulted in isolation. I then went to the right inferior pulmonary vein and performed a 4-minute, followed by a 3-minute freeze, which resulted in isolation. Next, I decided to proceed with posterior wall isolation. I performed 4 freezes anchored from the left superior pulmonary vein and then I performed 3 freezes slightly lower to the original lesion sets. I then anchored my balloon into the left inferior pulmonary vein and performed 3 freezes of the posterior wall from this location and then performed additional 3 freezes slightly inferior to the original lesion set as well. Next, a repeat voltage map was created and it appeared that most of the posterior wall was isolated, but there was still connection of the left superior, left inferior and right inferior pulmonary veins. Therefore, I went back and performed an additional freeze in the left inferior pulmonary vein, which resulted in isolation in 40 seconds and this also resulted in isolation of the left superior pulmonary vein. I then turned my attention to the left inferior pulmonary vein and performed an additional freeze along the ruby where this vein remained connected and this resulted in isolation within about 40 seconds. A repeat voltage map was created and it demonstrated that all 4 pulmonary veins were isolated and that the posterior wall was essentially isolated as well. The patient did undergo a cardioversion after I performed my initial posterior wall isolation and remained in sinus rhythm for the duration of the procedure. There were no procedure related complications, nor was there any pericardial effusion post-ablation. As such, the patient received systemic protamine. Catheters and sheaths were pulled and hemostasis was obtained. A [id number] suture was performed in the right groin region. The patient awoke neurologically and hemodynamically intact. No complications and no significant bleeding. CONCLUSIONS: 1. Successful atrial fibrillation ablation with isolation of pulmonary veins. 2. Successful posterior wall isolation. <ELECTRONICALLY SIGNED> By: Geoffrey Cantu MD 09/22/20 1151 1209 12 Geoffrey Cantu MD /nt
== END 2020-09-20 10:37 | disposition home or self-care (01) ==
LOC: CATH 06:31 → 2N 06:57 → CATH 09:19
PROVIDERS: Nurse Practitioner; ATTEND Internal Medicine Cardiovascular Disease
DX: I48.91 Unspecified atrial fibrillation (principal); I11.0 Hypertensive heart disease with heart failure; I50.9 Heart failure, unspecified; I25.10 Atherosclerotic heart disease of native coronary artery without angina pectoris; M10.9 Gout, unspecified; G47.30 Sleep apnea, unspecified; Z98.890 Other specified postprocedural states; Z79.899 Other long term (current) drug therapy; Z96.643 Presence of artificial hip joint, bilateral
CPT/HCPCS: 10797; 62110; 62900; 65020; 65040; 70005

== ENCOUNTER → 2020-10-02 | Outpatient (CLI) | payer OTHER, MEDICARE ==
[~2020-10-02] MED LIST changes: +DEMADEX20 MG PO
== END ==
LOC: SJCVC 12:55
PROVIDERS: ATTEND Internal Medicine Cardiovascular Disease
DX: R94.31 Abnormal electrocardiogram [ECG] [EKG] (principal); I45.10 Unspecified right bundle-branch block; I48.91 Unspecified atrial fibrillation; I11.0 Hypertensive heart disease with heart failure; I50.33 Acute on chronic diastolic (congestive) heart failure; I25.10 Atherosclerotic heart disease of native coronary artery without angina pectoris; E66.01 Morbid (severe) obesity due to excess calories; G47.33 Obstructive sleep apnea (adult) (pediatric); Z79.899 Other long term (current) drug therapy

== ENCOUNTER → 2020-12-23 | Outpatient (CLI) | payer OTHER | LOC: SJCVC 13:01 | PROVIDERS: ATTEND Internal Medicine Cardiovascular Disease | DX: R94.31 Abnormal electrocardiogram [ECG] [EKG] (principal); I48.91 Unspecified atrial fibrillation; R00.1 Bradycardia, unspecified; E78.00 Pure hypercholesterolemia, unspecified; I25.10 Atherosclerotic heart disease of native coronary artery without angina pectoris; I11.0 Hypertensive heart disease with heart failure; I50.33 Acute on chronic diastolic (congestive) heart failure; G47.33 Obstructive sleep apnea (adult) (pediatric); E03.9 Hypothyroidism, unspecified; M10.9 Gout, unspecified; Z90.49 Acquired absence of other specified parts of digestive tract; Z96.652 Presence of left artificial knee joint; Z98.890 Other specified postprocedural states; Z79.899 Other long term (current) drug therapy ==

== ENCOUNTER → 2021-03-26 | Outpatient (CLI) | payer OTHER | LOC: SJCVC 13:25 | PROVIDERS: ATTEND Internal Medicine Cardiovascular Disease | DX: R94.31 Abnormal electrocardiogram [ECG] [EKG] (principal); I48.91 Unspecified atrial fibrillation; I11.0 Hypertensive heart disease with heart failure; I50.33 Acute on chronic diastolic (congestive) heart failure; I25.10 Atherosclerotic heart disease of native coronary artery without angina pectoris; G47.33 Obstructive sleep apnea (adult) (pediatric); M10.9 Gout, unspecified; Z98.890 Other specified postprocedural states; Z79.899 Other long term (current) drug therapy ==

== ENCOUNTER → 2021-09-03 | Outpatient (CLI) | payer OTHER | LOC: SJCVC 13:27 | PROVIDERS: ATTEND Internal Medicine Cardiovascular Disease | DX: R94.31 Abnormal electrocardiogram [ECG] [EKG] (principal); I48.91 Unspecified atrial fibrillation; I11.0 Hypertensive heart disease with heart failure; I50.30 Unspecified diastolic (congestive) heart failure; I65.29 Occlusion and stenosis of unspecified carotid artery; M10.9 Gout, unspecified; E87.5 Hyperkalemia; G47.10 Hypersomnia, unspecified; G47.33 Obstructive sleep apnea (adult) (pediatric); Z79.899 Other long term (current) drug therapy ==

== ENCOUNTER → 2021-09-08 | Outpatient (CLI) | payer OTHER ==
[~2021-09-08] VITALS: Ht 185.4 cm; Wt 121.1 kg
[2021-09-08 07:30] VITALS: BP 169/120
[2021-09-08 07:34] LABS: BASOPHILS 0.7 % (0.0-2.0); EOSINOPHILS 1.4 % (0.0-3.0); HEMATOCRIT 44.5 % (42.0-52.0); HEMOGLOBIN 14.4 gm/dL (14.0-18.0); MCH 30.3 pg (26.0-34.0); MCHC 32.5 g/dL (28.0-37.0); MCV 93.4 fL (80.0-100.0); MONOCYTES 9.2 % (1.0-8.0); PLATELET COUNT 164 thou/uL (150-400); POLYS 65.7 % (36.0-66.0); RBC 4.76 mil/uL (4.50-6.00); RDW 13.7 % (10.5-14.5); WBC 9.1 thou/uL (4.0-11.0)
[2021-09-08 07:53] LABS: ALBUMIN 3.2 g/dL (3.4-5.0); CALCIUM 8.5 mg/dL (8.5-10.1); CREATININE 1.2 mg/dL (0.7-1.3); TOTAL BILIRUBIN 1.7 mg/dL (0.2-1.0); TOTAL PROTEIN 6.6 g/dL (6.4-8.2)
[2021-09-08 07:54] LABS: APTT 32.8 Seconds (24.5-32.8); INR 1.21; PROTIME 13.1 Seconds (10.5-12.1)
== END | disposition home or self-care (01) ==
LOC: CATH 06:38
PROVIDERS: ATTEND Internal Medicine Cardiovascular Disease
DX: I48.91 Unspecified atrial fibrillation (principal); I11.0 Hypertensive heart disease with heart failure; I50.9 Heart failure, unspecified; I25.10 Atherosclerotic heart disease of native coronary artery without angina pectoris; Z20.822 Contact with and (suspected) exposure to COVID-19
CPT/HCPCS: 62110; 62900

== ENCOUNTER → 2021-09-24 | Outpatient (CLI) | payer OTHER ==
[~2021-09-24] VITALS: Ht 185.4 cm; Wt 121.1 kg
[~2021-09-24] MED LIST changes: +MULTAQ 400 MG400 MG PO
[2021-09-24 09:30] VITALS: BP 125/82
[2021-09-24 09:37] LABS: ABSOLUTE NEUTROPHILS 4.3 thou/uL (1.4-8.2); BASOPHILS 0.7 % (0.0-2.0); HEMATOCRIT 46.6 % (42.0-52.0); MCH 30.1 pg (26.0-34.0); MCHC 32.1 g/dL (28.0-37.0); MCV 93.8 fL (80.0-100.0); MONOCYTES 8.4 % (1.0-8.0); PLATELET COUNT 177 thou/uL (150-400); POLYS 59.9 % (36.0-66.0); RBC 4.97 mil/uL (4.50-6.00); RDW 13.3 % (10.5-14.5); WBC 7.2 thou/uL (4.0-11.0)
[2021-09-24 09:44] LABS: CALCIUM 8.6 mg/dL (8.5-10.1); CREATININE 1.4 mg/dL (0.7-1.3); POTASSIUM 3.3 mmol/L (3.5-5.1)
[2021-09-24 09:48] LABS: INR 1.29; PROTIME 13.9 Seconds (10.5-12.1)
[2021-09-24 09:50] LABS: ALBUMIN 3.3 g/dL (3.4-5.0); TOTAL BILIRUBIN 0.9 mg/dL (0.2-1.0); TOTAL PROTEIN 6.7 g/dL (6.4-8.2)
--- NOTE | 2021-09-25 12:50 | P ---
[facility] [place] [address] PROCEDURE REPORT Name: SANTIAGO MICHAELS Room #: JACKY Lindsay.#: [id number] Admission: 09/24/21 Attend Phys: Geoffrey Cantu MD Discharge: Date of : 52 Report #: [id number] THIS REPORT FOR: cc: Amadou Jamil MD Amadou Gentile MD, FAAFP, FACEP, Luis F. MD ~ DATE OF SERVICE: 09/24/2021 CARDIOVERSION PREOPERATIVE DIAGNOSIS: Atrial fibrillation. POSTOPERATIVE DIAGNOSIS: Atrial fibrillation. DESCRIPTION OF PROCEDURE: The patient underwent informed consent. He was prepped in a standard fashion. He was sedated by the anesthesiology service. Once sedated, he underwent a 200 joule synchronized cardioversion with hindu of sinus rhythm. There were no procedure-related complications. CONCLUSION: Successful DC cardioversion with hindu of sinus rhythm. <ELECTRONICALLY SIGNED> By: Geoffrey Cantu MD 09/25/21 1250 1011 1657 Geoffrey Cantu MD /nt
== END | disposition home or self-care (01) ==
LOC: CATH 08:29
PROVIDERS: ATTEND Internal Medicine Cardiovascular Disease
DX: I48.91 Unspecified atrial fibrillation (principal); I11.0 Hypertensive heart disease with heart failure; I50.30 Unspecified diastolic (congestive) heart failure; E78.5 Hyperlipidemia, unspecified; M10.9 Gout, unspecified; G47.33 Obstructive sleep apnea (adult) (pediatric); Z98.890 Other specified postprocedural states; Z79.899 Other long term (current) drug therapy; Z20.822 Contact with and (suspected) exposure to COVID-19; Z79.01 Long term (current) use of anticoagulants
CPT/HCPCS: 62110; 62900

== ENCOUNTER → 2021-12-01 | Outpatient (CLI) | payer OTHER ==
[~2021-12-01] VITALS: Ht 185.4 cm; Wt 117.9 kg
[2021-12-01 07:24] VITALS: BP 153/105
[2021-12-01 07:37] LABS: ABSOLUTE NEUTROPHILS 4.1 thou/uL (1.4-8.2); BASOPHILS 0.5 % (0.0-2.0); EOSINOPHILS 4.8 % (0.0-3.0); HEMATOCRIT 44.6 % (42.0-52.0); HEMOGLOBIN 14.6 gm/dL (14.0-18.0); LYMPHOCYTES 27.6 % (24.0-44.0); MCH 30.2 pg (26.0-34.0); MCHC 32.7 g/dL (28.0-37.0); MCV 92.5 fL (80.0-100.0); MONOCYTES 9.2 % (1.0-8.0); PLATELET COUNT 159 thou/uL (150-400); POLYS 57.9 % (36.0-66.0); RBC 4.82 mil/uL (4.50-6.00); RDW 14.2 % (10.5-14.5); WBC 7.1 thou/uL (4.0-11.0)
[2021-12-01 07:45] LABS: CALCIUM 8.4 mg/dL (8.5-10.1); CREATININE 1.3 mg/dL (0.7-1.3); POTASSIUM 3.3 mmol/L (3.5-5.1)
[2021-12-01 07:51] LABS: ALBUMIN 3.3 g/dL (3.4-5.0); TOTAL BILIRUBIN 0.8 mg/dL (0.2-1.0); TOTAL PROTEIN 6.7 g/dL (6.4-8.2)
[2021-12-01 08:01] LABS: APTT 35.5 Seconds (24.5-32.8); INR 1.3; PROTIME 13.2 Seconds (9.3-11.4)
--- NOTE | 2021-12-01 09:11 | NUR ---
PT IN ROOM 11 A/OX3 WITH NO C/O OR QUESTIONS. 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 PT A/OX3 POST PROCEDURE WITH FURNITURE DESIGNER LEAVING. PT HAS NO C/O WITH AT BEDSIDE.
--- NOTE | 2021-12-01 09:20 | NUR ---
PT A/OX3. PT TAKING SMALL SIP OF LIQUID WITH NO COUGHING OR DIFFICULTY. COFFEE PROVIDED PER PT REQUEST.
--- NOTE | 2021-12-01 17:23 | EKG ---
[address] [address] ELECTROCARDIOGRAM REPORT Name: SANTIAGO MICHAELS Room #: [facility]#: [id number] Admission: 12/01/21 Attend Phys: Geoffrey Cantu MD Discharge: Date of : 52 Report #: [id number] [facility] Test Date: 2021-12-01 Test Time: 09:44:00 Pat Name: SANTIAGO MICHAELS Department: Room: Gender: Composite [employer] Worker: [facility] : 1950 Requested By: Geoffrey Cantu Order Number: [id number] MD: Narendra Ambriz Measurements Intervals [place] Rate: 79 P: 129 OK: 283 QRS: 26 QRSD: 116 T: 176 QT: 443 QTc: 508 Interpretive Statements Sinus rhythm Prolonged OK interval Nonspecific intraventricular conduction delay Nonspecific ST and T wave abnormality Compared to ECG 08/25/2020 07:35:48 Sinus rhythm has replaced atrial fibrillation Electronically Signed On 12-01-2021 17:23:00 [employer]ICE PRESIDENT [employer]ER by Narendra Ambriz [email or web address] <ELECTRONICALLY SIGNED> By: Narendra Ambriz MD, [facility] 12/01/21 1723 0944 0944 Narendra Ambriz MD, [facility] /EPI
--- NOTE | 2021-12-07 12:50 | P ---
[facility] [place] [address] PROCEDURE REPORT Name: SANTIAGO MICHAELS Room #: JACKY [facility].#: [id number] Admission: 12/01/21 Attend Phys: Geoffrey Cantu MD Discharge: Date of : 52 Report #: [id number] THIS REPORT FOR: cc: Amadou Jamil MD Amadou Gentile MD, FAAFP, FACEP, Luis F. MD ~ DATE OF SERVICE: 12/01/2021 PREOPERATIVE DIAGNOSIS: Atrial fibrillation. POSTOPERATIVE DIAGNOSIS: Atrial fibrillation. PROCEDURE: DC cardioversion. DESCRIPTION OF PROCEDURE: The patient was brought to the procedure suite in a fasting and nonsedated state and underwent informed consent. He was prepped in a standard fashion. Patches placed in AP position. He was sedated by the Anesthesiology Service and then underwent a 200 joule synchronized cardioversion with church of sinus rhythm. There were no procedure related complications. CONCLUSION: Successful DC cardioversion with church of sinus rhythm. <ELECTRONICALLY SIGNED> By: Geoffrey Cantu MD 12/07/21 1250 0724 2044 Geoffrey Cantu MD /nt
== END | disposition home or self-care (01) ==
LOC: CATH 06:41
PROVIDERS: ATTEND Internal Medicine Cardiovascular Disease
DX: I48.91 Unspecified atrial fibrillation (principal); I11.0 Hypertensive heart disease with heart failure; I50.30 Unspecified diastolic (congestive) heart failure; I25.10 Atherosclerotic heart disease of native coronary artery without angina pectoris; I42.9 Cardiomyopathy, unspecified; E78.5 Hyperlipidemia, unspecified; I73.9 Peripheral vascular disease, unspecified; Z98.890 Other specified postprocedural states; Z79.899 Other long term (current) drug therapy; Z20.822 Contact with and (suspected) exposure to COVID-19
CPT/HCPCS: 62110; 62900